=== PATIENT | female | born 1985 | race Asian ===

== ENCOUNTER 2021-02-04 07:30 | Inpatient (IN) | payer OTHER, SELFPAY ==
[2021-02-02 11:57] LABS: APPEARANCE,URINE CLEAR (CLEAR); BILIRUBIN,URINE NEGATIVE (NEGATIVE); BLOOD, URINE NEGATIVE (NEGATIVE); LEUKOCYTE ESTERASE ,URINE NEGATIVE (NEGATIVE); NITRITE, URINE NEGATIVE (NEGATIVE); UGLUCOSE NEGATIVE (NEGATIVE)
[2021-02-02 11:59] LABS: COLOR,URINE YELLOW (YELLOW)
[2021-02-02 12:03] LABS: BASOPHILS % (AUTO) 0.6 % (0.0-2.0); EOSINOPHILS # (AUTO) 0.1 K/uL (0-0.4); HEMATOCRIT 34.1 % (36-48); HEMOGLOBIN 10.6 g/dL (12.0-16.0); LYMPHOCYTES # (AUTO) 1.2 K/uL (2.5-16.5); LYMPHOCYTES % (AUTO) 18.5 % (20.5-51.1); MEAN CORPUSCULAR HEMOGLOBIN 21 pg (27-31); MEAN CORPUSCULAR HGB CONC 31 g/dL (33-37); MEAN CORPUSCULAR VOLUME 66.7 fL (80-94); MONOCYTES # (AUTO) 0.5 K/uL (0.8-1.0); MONOCYTES % (AUTO) 7.1 % (1.7-9.3); NEUTROPHILS # (AUTO) 4.7 K/uL (1.8-7.7); NEUTROPHILS % (AUTO) 72.8 % (42.2-75.2); PLATELET COUNT (AUTO) 198 K/uL (140-450); RED BLOOD CELL COUNT(AUTO) 5.12 MIL/uL (4.20-5.40); RED CELL DISTRIBUTION WIDTH 19.2 % (11.6-13.7); WHITE BLOOD COUNT (AUTO) 6.5 K/uL (4.8-10.8)
[2021-02-02 12:11] LABS: ALBUMIN 2.5 g/dL (3.4-5.0); ANION GAP 10.1 (8-16); CREATININE 0.6 mg/dL (0.6-1.3); POTASSIUM 4.1 mmol/L (3.5-5.1); TOTAL BILIRUBIN 0.1 mg/dL (0.0-1.0)
[~2021-02-04] VITALS: Ht 152.4 cm; Wt 80.7 kg
[2021-02-04] MEDS ORDERED: LACTATED RINGERS 1,000 ML IV SCH (09:45)
[2021-02-04] MEDS ORDERED: ASCO500T95 PO (09:52)
[2021-02-04] MEDS ORDERED: OSC500 PO (09:52)
[2021-02-04] MEDS ORDERED: FERR-212 PO (09:52)
[2021-02-04] MEDS ORDERED: PREN-556 PO (09:52)
[2021-02-04] MEDS ORDERED: VITA-16 PO (09:52)
[2021-02-04] MEDS ORDERED: CITRIC ACID/SODIUM CITRATE 30 ML UDC PO SCH (10:00)
[2021-02-04] MEDS ORDERED: HUM SUBQ (10:15)
[2021-02-04] MEDS ORDERED: INSU100S5 IJ (10:15)
[2021-02-04] MEDS ORDERED: MORPHINE PRES FREE 10 MG/10 ML AMP IV ONE (10:48)
[2021-02-04 11:02] VITALS: BP 126/74
[2021-02-04] MEDS ORDERED: METHYLERGONOVINE 0.2 MG/ML AMP IM PRN (11:35)
[2021-02-04] MEDS ORDERED: MEASLES, MUMPS, AND RUBELLA 1 VIAL SQVAC PRN (11:35)
[2021-02-04] MEDS ORDERED: oxyCODONE/APAP 5/325 MG 1 TAB TAB PO PRN (11:35)
[2021-02-04] MEDS ORDERED: OXYTOCIN 20 UNITS in LACTATED RINGERS 1,000 ML IV SCH ×2 (11:35→12:20)
[2021-02-04] MEDS ORDERED: NALBUPHINE 10 MG/ML AMP IVP PRN (12:20)
[2021-02-04] MEDS ORDERED: NALOXONE 0.4 MG/ML VIAL IVP PRN ×3 (12:20)
[2021-02-04] MEDS ORDERED: BLOOD GLUCOSE MONITORING 1 DEV DEV FS ONE (12:20)
[2021-02-04] MEDS ORDERED: MEPERIDINE 25 MG/ML SYR IVP PRN (12:20)
[2021-02-04] MEDS ORDERED: ONDANSETRON 4 MG/2 ML VIAL IVP PRN ×2 (12:20)
[2021-02-04] MEDS ORDERED: diphenhydrAMINE 50 MG/ML VIAL IVP PRN ×2 (12:20)
[2021-02-04] MEDS ORDERED: HYDROmorphone 1 MG/ML AMP IVP PRN (12:20)
[2021-02-04] MEDS: KETOROLAC 30 MG/ML VIAL IM/IVP SCH ×2 (17:27→23:59)
[2021-02-04] MEDS ORDERED: PROMETHAZINE 25 MG/ML VIAL IVP PRN (18:45)
[2021-02-04] MEDS: OXYTOCIN 20 UNITS in LACTATED RINGERS 1,000 ML IV SCH (21:43)
[2021-02-05] MEDS ORDERED: OXYTOCIN 20 UNITS/LR PREMIX 1,000 ML IV ONE (05:29)
[2021-02-05 05:32] LABS: BASOPHILS # (AUTO) 0.1 K/uL (0.00-0.22); BASOPHILS % (AUTO) 0.5 % (0.0-2.0); EOSINOPHILS % (AUTO) 0.3 % (0.0-4.0); HEMOGLOBIN 8.5 g/dL (12.0-16.0); LYMPHOCYTES # (AUTO) 1.5 K/uL (2.5-16.5); LYMPHOCYTES % (AUTO) 11.5 % (20.5-51.1); MEAN CORPUSCULAR HEMOGLOBIN 21 pg (27-31); MEAN CORPUSCULAR HGB CONC 31 g/dL (33-37); MEAN CORPUSCULAR VOLUME 67.1 fL (80-94); MONOCYTES % (AUTO) 7.2 % (1.7-9.3); NEUTROPHILS # (AUTO) 10.7 K/uL (1.8-7.7); NEUTROPHILS % (AUTO) 80.5 % (42.2-75.2); PLATELET COUNT (AUTO) 165 K/uL (140-450); RED BLOOD CELL COUNT(AUTO) 4.03 MIL/uL (4.20-5.40); WHITE BLOOD COUNT (AUTO) 13.4 K/uL (4.8-10.8)
[2021-02-05] MEDS: OXYTOCIN 20 UNITS in LACTATED RINGERS 1,000 ML IV SCH (05:39)
[2021-02-05] MEDS: KETOROLAC 30 MG/ML VIAL IM/IVP SCH (06:10)
--- NOTE | 2021-02-05 08:42 | NUR ---
PATIENT HAS BEEN SCREENED AND CATEGORIZED LOW NUTRITION RISK. PATIENT WILL BE SEEN WITHIN 7 DAYS OF ADMISSION. 02/10/[address]
[2021-02-05] MEDS ORDERED: bisacodyL 10 MG SUPP RC SCH (09:00)
[2021-02-05] MEDS ORDERED: SIMETHICONE 80 MG TAB.CHEW PO PRN (19:15)
[2021-02-05] MEDS: IBUPROFEN 800 MG TAB PO PRN (19:34)
[2021-02-06] MEDS ORDERED: CAMERA MC ONE (03:05)
[2021-02-06] MEDS: IBUPROFEN 800 MG TAB PO PRN ×2 (04:03→10:57)
[2021-02-06 08:11] LABS: BASOPHILS # (AUTO) 0.1 K/uL (0.00-0.22); BASOPHILS % (AUTO) 0.5 % (0.0-2.0); EOSINOPHILS # (AUTO) 0.1 K/uL (0-0.4); HEMATOCRIT 26.9 % (36-48); HEMOGLOBIN 8.2 g/dL (12.0-16.0); LYMPHOCYTES # (AUTO) 1.2 K/uL (2.5-16.5); LYMPHOCYTES % (AUTO) 10.9 % (20.5-51.1); MEAN CORPUSCULAR HEMOGLOBIN 21 pg (27-31); MEAN CORPUSCULAR HGB CONC 31 g/dL (33-37); MEAN CORPUSCULAR VOLUME 67.9 fL (80-94); MONOCYTES # (AUTO) 0.8 K/uL (0.8-1.0); NEUTROPHILS # (AUTO) 9.1 K/uL (1.8-7.7); NEUTROPHILS % (AUTO) 80.6 % (42.2-75.2); PLATELET COUNT (AUTO) 168 K/uL (140-450); RED BLOOD CELL COUNT(AUTO) 3.96 MIL/uL (4.20-5.40); RED CELL DISTRIBUTION WIDTH 19.6 % (11.6-13.7); WHITE BLOOD COUNT (AUTO) 11.3 K/uL (4.8-10.8)
[2021-02-06] MEDS ORDERED: FERR325E14 PO (11:11)
== END 2021-02-06 13:15 | disposition home or self-care (01) | DRG 788 ==
LOC: MLD 09:01 → MFCC 14:10
PROVIDERS: ADMIT Obstetrics & Gynecology; ATTEND Obstetrics & Gynecology
PROC: 3E0134Z Introduction of Serum, Toxoid and Vaccine into Subcutaneous Tissue, Percutaneous Approach (ICD-10-PCS; 2021-02-04)
PROC: 3E0234Z Introduction of Serum, Toxoid and Vaccine into Muscle, Percutaneous Approach (ICD-10-PCS; 2021-02-04)
PROC: 10D00Z1 Extraction of Products of Conception, Low, Open Approach (ICD-10-PCS; principal; 2021-02-04 11:00)
DX: O32.1XX0 Maternal care for breech presentation, not applicable or unspecified (principal); O24.424 Gestational diabetes mellitus in childbirth, insulin controlled; D25.9 Leiomyoma of uterus, unspecified; O34.13 Maternal care for benign tumor of corpus uteri, third trimester; Z20.822 Contact with and (suspected) exposure to COVID-19; Z23 Encounter for immunization; Z3A.38 38 weeks gestation of pregnancy; Z37.0 Single live birth
CPT/HCPCS: 36415; 80053; 81003; 82948; 85025; 86592; 86886; 86900; 86901; 87653-90; J0690; J1885; J2270; J2590; J7060; J7120